=== PATIENT | male | born 1965 | race Caucasian/White ===

== ENCOUNTER 2016-06-23 05:35 | Inpatient (IN) | payer OTHER ==
[~2016-06-23] VITALS: Ht 175.3 cm; Wt 84.1 kg
[~2016-06-23 05:35] MED LIST: DEXAMETHASONE SOD PHOS 4 MG/ML VIAL IVP ONE; EPHEDrine SULFATE 50 MG/ML VIAL IM ONE; FentaNYL CITRATE-PF 250 MCG/5 ML VIAL IVP ONE; GLYCOPYRROLATE 0.2 MG/ML VIAL IM ONE; HEPARIN SODIUM,PORCINE 1,000 UNITS/ML VIAL IVP ONE; HYDROmorphone 2 MG/ML SYRINGE IVP ONE; KETOROLAC TROMETHAMINE 60 MG/2 ML VIAL IM ONE; LABETALOL HCL 5 MG/ML 20 ML VIAL IVP ONE; LIDOCAINE HCL/PF 2% 5 ML VIAL IM ONE; METOCLOPRAMIDE HCL 5 MG/ML 2 ML VIAL IVP ONE; MIDAZOLAM HCL 2 MG/2 ML VIAL IVP ONE; NEOSTIGMINE METHYLSULFATE 1 MG/ML 10 ML VIAL IVP ONE; ONDANSETRON HCL 4 MG/2 ML VIAL IVP ONE; PROPOFOL 1% 20 ML VIAL IVP ONE; ROCURONIUM BROMIDE 10 MG/ML 5 ML VIAL IVP ONE; SUCCINYLCHOLINE CHLORIDE 20 MG/ML 10 ML VIAL IVP ONE
[2016-06-23] MEDS ORDERED: CeFAZolin 2 GM/DEXTROSE 50 ML IV ONE ×2 (05:57→08:00)
[2016-06-23] MEDS ORDERED: RINGERS SOLUTION,LACTATED 1,000 ML IV ONE ×3 (05:57→09:56)
[2016-06-23] MEDS ORDERED: ESOM20CA31 PO (06:12)
[2016-06-23 06:49] LABS: PROTHROMBIN TIME 10.3 SEC (9.4-11.6)
[2016-06-23] MEDS ORDERED: SODIUM CHLORIDE 0.9% 0 ML IV ONE (06:55)
[2016-06-23] MEDS ORDERED: SODIUM CHLORIDE 0.9% 10 ML ONE (06:55)
[2016-06-23] MEDS ORDERED: GELATIN SPONGE,ABSORBABLE 100 MM TP ONE (06:55)
[2016-06-23] MEDS ORDERED: THROMBIN, BOVINE 20000 UNITS/VIAL POWDER TP ONE (06:56)
[2016-06-23] MEDS: BACITRACIN 50,000 UNITS/VIAL ONE ×2 (08:36→09:02)
[2016-06-23] MEDS: BUPIVACAINE LIPOSOME/PF 1.3%-13.3MG/ML SUSPENSION 20 ML VIAL INJ ONE ×2 (09:03→10:18)
[2016-06-23] MEDS ORDERED: MEPERIDINE-PF 25 MG/ML SYRINGE IVP PRN (09:30)
[2016-06-23] MEDS ORDERED: HYDROmorphone 2 MG/ML SYRINGE IVP PRN (09:30)
[2016-06-23] MEDS ORDERED: FentaNYL CITRATE-PF 100 MCG/2 ML VIAL IVP PRN (09:30)
[2016-06-23] MEDS ORDERED: ZOLPIDEM TARTRATE 5 MG TABLET PO PRN (10:30)
[2016-06-23] MEDS ORDERED: ONDANSETRON HCL 4 MG/2 ML VIAL IVP PRN (11:00)
[2016-06-23] MEDS ORDERED: MAG HYDROX/AL HYDROX/SIMETH 30 ML SUSP UDCUP PO PRN (11:00)
[2016-06-23] MEDS ORDERED: RINGERS SOLUTION,LACTATED 1,000 ML IV SCH (11:00)
[2016-06-23] MEDS ORDERED: ACETAMINOPHEN 325 MG TABLET PO PRN (11:00)
[2016-06-23 12:15] VITALS: BP 120/78
[2016-06-23] MEDS: HYDROmorphone 2 MG/ML SYRINGE IVP PRN ×4 (12:51→23:54)
[2016-06-23] MEDS: OXYGEN THERAPY IH SCH (12:55)
[2016-06-23] MEDS: ACETAMINOPHEN 1000 MG/ISO-OSM 100 ML IV SCH ×2 (14:32→20:27)
[2016-06-23 15:05] VITALS: BP 100/63
[2016-06-23] MEDS ORDERED: INFLUENZA VIRUS VACCINE QVS 2016-17 (3YR+)/PF 60 MCG/0.5 ML SYRINGE IM ONE (16:00)
[2016-06-23] MEDS: CeFAZolin 1 GM/DEXTROSE 50 ML IV SCH ×2 (16:32→23:51)
[2016-06-23] MEDS: DIAZEPAM 5 MG TABLET PO SCH ×2 (16:32→20:27)
[2016-06-23 21:16] VITALS: BP 102/64
[2016-06-24] VITALS (7 sets, daily range): BP systolic 97–144; BP diastolic 58–80
[2016-06-24] MEDS: OXYGEN THERAPY IH SCH ×3 (02:04→08:00)
[2016-06-24] MEDS: ACETAMINOPHEN 1000 MG/ISO-OSM 100 ML IV SCH ×2 (02:04→07:55)
[2016-06-24] MEDS: HYDROmorphone 2 MG/ML SYRINGE IVP PRN ×8 (03:54→21:58)
[2016-06-24 06:26] LABS: BASOPHILS % (AUTO) 0.2 % (0.0-2.0); EOSINOPHILS % (AUTO) 0.2 % (1.0-6.0); HEMATOCRIT 35.8 % (41-53); LYMPHOCYTES # (AUTO) 1.3 K/uL (1.0-4.8); LYMPHOCYTES % (AUTO) 10.6 % (22.0-44.0); MEAN CORPUSCULAR HEMOGLOBIN 30.6 pg (26.0-34.0); MEAN CORPUSCULAR HGB CONC 33.4 G/dL (31.0-37.0); MEAN CORPUSCULAR VOLUME 92 fL (80-100); MONOCYTES # (AUTO) 1.2 K/uL (0.1-1.0); MONOCYTES % (AUTO) 9.5 % (2.0-9.0); NEUTROPHILS # (AUTO) 10.1 K/uL (1.8-7.7); NEUTROPHILS % (AUTO) 79.5 % (40.0-70.0); PLATELET COUNT (AUTO) 238 K/uL (150-450); RED BLOOD CELL COUNT(AUTO) 3.91 MIL/uL (4.50-5.90); RED CELL DISTRIBUTION WIDTH 12.1 % (11.5-14.5); WHITE BLOOD COUNT (AUTO) 12.7 K/uL (4.5-11.0)
[2016-06-24 06:42] LABS: ANION GAP 5 mmol/L (8-16); CALCIUM, TOTAL 8.3 mg/dL (8.8-10.5); CARBON DIOXIDE 30 mmol/L (22-29); CHLORIDE 105 mmol/L (98-107); CREATININE 0.81 mg/dL (0.60-1.30); GLOMERULAR FILTR. RATE CALC > 60 mL/min (>60); POTASSIUM 4.3 mmol/L (3.5-5.1); SODIUM SERUM 140 mmol/L (136-145); UREA NITROGEN, BLOOD 12 mg/dL (7-18)
[2016-06-24] MEDS: DIAZEPAM 5 MG TABLET PO SCH ×3 (07:56→19:55)
[2016-06-24] MEDS: ESOMEPRAZOLE MAG TRIHYDRATE 20 MG CAPSULE PO SCH (07:56)
[2016-06-24] MEDS: DOCUSATE SODIUM 100 MG CAPSULE PO SCH ×2 (07:56→19:55)
[2016-06-24] MEDS: CYCLOBENZAPRINE HCL 10 MG TABLET PO PRN (11:34)
[2016-06-24] MEDS ORDERED: OxyCODONE HCL/ACETAMINOPHEN 10-325 MG TABLET PO PRN (17:45)
[2016-06-24] MEDS: OxyCODONE HCL/ACETAMINOPHEN 10-325 MG TABLET PO PRN ×2 (18:27→23:19)
[2016-06-25] MEDS: CYCLOBENZAPRINE HCL 10 MG TABLET PO PRN (05:06)
[2016-06-25] MEDS: OxyCODONE HCL/ACETAMINOPHEN 10-325 MG TABLET PO PRN (05:06)
[2016-06-25 05:10] VITALS: BP 124/76
[2016-06-25 08:00] VITALS: BP 118/71
[2016-06-25] MEDS: OXYGEN THERAPY IH SCH ×2 (08:00)
[2016-06-25 08:19] VITALS: BP 129/79
[2016-06-25] MEDS: HYDROmorphone 2 MG/ML SYRINGE IVP PRN (08:25)
[2016-06-25] MEDS: DIAZEPAM 5 MG TABLET PO SCH (08:26)
[2016-06-25] MEDS: DOCUSATE SODIUM 100 MG CAPSULE PO SCH (08:26)
[2016-06-25] MEDS: ESOMEPRAZOLE MAG TRIHYDRATE 20 MG CAPSULE PO SCH (08:26)
[2016-06-25 11:05] VITALS: BP 123/78
[2016-06-25] MEDS ORDERED: PERCT10 PO (12:46)
[2016-06-25] MEDS ORDERED: CYCL10 PO (12:47)
== END 2016-06-25 15:30 | disposition home or self-care (01) | DRG 460 ==
LOC: 4E 05:35
PROVIDERS: ADMIT Neurological Surgery; ATTEND Neurological Surgery
PROC: 0SB20ZZ Excision of Lumbar Vertebral Disc, Open Approach (ICD-10-PCS; 2016-06-23)
PROC: 0SB20ZZ Excision of Lumbar Vertebral Disc, Open Approach (ICD-10-PCS; 2016-06-23)
PROC: 01NB0ZZ Release Lumbar Nerve, Open Approach (ICD-10-PCS; 2016-06-23)
PROC: 0SG00A1 (ICD-10-PCS; principal; 2016-06-23 08:36)
DX: M51.16 Intervertebral disc disorders with radiculopathy, lumbar region (principal); G89.29 Other chronic pain; K21.9 Gastro-esophageal reflux disease without esophagitis; Z98.890 Other specified postprocedural states; Z28.21 Immunization not carried out because of patient refusal
CPT/HCPCS: 86850; 86900; 86901; 86920; 87081; 88300; 90471; 93005; 97161; 97165; 97530; C1713; C9290; J0131; J0330; J0690; J1030; J1100; J1170; J1644; J1885; J2250; J2405; J2704; J2765; J3010; J3490; J7050; J7120